=== PATIENT | male | born 1960 | race Caucasian/White ===

== ENCOUNTER → 2016-11-22 | Outpatient (CLI) | payer BC ==
[~2016-11-22] MED LIST: AMARYL2 MG PO; ASPIRIN325 MG PO; BACTRIM DS1 TAB PO; CLEOCIN150 MG PO; INVOKANA300 MG PO; JANUVIA 100 MG100 MG PO; LASIX20 MG PO; LIPITOR20 M1 PO; LOPRESSOR25 MG PO; METFORMIN HCL1000 MG PO; PERCOCET 5-3251 EACH PO; ZESTORETIC 20-1 EACH PO
== END | disposition disaster alternative care site (69) ==
LOC: GRAD 13:42
DX: E11.621 Type 2 diabetes mellitus with foot ulcer (principal); L97.519 Non-pressure chronic ulcer of other part of right foot with unspecified severity; E11.40 Type 2 diabetes mellitus with diabetic neuropathy, unspecified; M86.9 Osteomyelitis, unspecified

== ENCOUNTER 2016-11-24 11:19 | Observation (INO) | payer BC ==
--- NOTE | 2016-11-23 15:22 | NUR ---
Patient will have surgicial intervention by Dr. Dubois tomorrow regarding his right foot osteo. No futher appts. from outpatient [facility] at this time needed. SKY Marinelli
[~2016-11-24] VITALS: Ht 177.8 cm; Wt 135.0 kg
--- NOTE | ~2016-11-24 | DS ---
PATIENT'S NAME: ADRIENNE REAGAN [facility] AGE: 56 Y [address] ROOM: [place] [address] LOCATION: [facility] ADMIT DATE: 11/24/2016 Discharge Summary DISCHARGE DATE: 11/25/2016 FAMILY PHYSICIAN: Waldo Alegre MD ATTENDING PHYSICIAN: Demond Santos ADMITTING DIAGNOSES: 1. Right 5th metatarsal osteomyelitis. 2. Right diabetic pressure sore underneath the 5th metatarsal head. 3. Right gastrocnemius equinus. DISCHARGE DIAGNOSES: 1. Right 5th metatarsal osteomyelitis. 2. Right diabetic pressure sore underneath the 5th metatarsal head. 3. Right gastrocnemius equinus. SECONDARY DIAGNOSES: 1. Chronic obstructive pulmonary disease. 2. Diabetes mellitus type 2. 3. Hypertension. 4. Hyperlipidemia. 5. Obesity. 6. Osteomyelitis. 7. Peripheral neuropathy. 8. Sleep apnea. CONSULTATIONS: Hospitalist Service for medical management. PROCEDURES: Patient underwent the following procedure by Dr. Santos on 11/24/2016 and did tolerate the procedure well. 1. Gastrocnemius recession. 2. Excision of right 5th metatarsal bone. 3. Irrigation and debridement of skin, subcutaneous tissue, muscle, fascia, down to bone, wound measuring 4 x 4 cm. HISTORY OF PRESENT ILLNESS: This is a 56-year-old male patient seen by Dr. Santos earlier in the week for a right 5th metatarsal diabetic ulcer under the right foot and osteomyelitis. At that time it was felt that the patient needed surgery urgently, and the patient was scheduled for surgery on 11/24/2016. HOSPITAL COURSE: The patient was admitted overnight after his above-described procedure. He was kept under adequate pain control through the night. He did receive 3 doses of postoperative antibiotics. The patient's hospital course was uneventful and on 11/25/2016, the patient was determined to be stable for PAT[facility]'S [facility] AGE: 56 Y [address] ROOM: [place] [address] LOCATION: [facility] ADMIT DATE: 11/24/2016 Discharge Summary DISCHARGE DATE: 11/25/2016 FAMILY PHYSICIAN: Waldo Alegre MD ATTENDING PHYSICIAN: Demond Santos discharge home. DISCHARGE MEDICATIONS: New and changed medication: 1. Aspirin was changed to 325 mg p.o. b.i.d. for DVT prophylaxis. 2. He is also started on Percocet 5/325 1 tab every 4 hours as needed for pain. 3. Clindamycin 150 mg 3 tabs every 6 hours until gone. 4. Otherwise patient was discharged to take it his pre-admission medications as instructed by his internal medicine doctor. DISCHARGE INSTRUCTIONS: The patient is to be nonweightbearing of the right lower extremity. He is to wear postop shoe while transferring but may take the shoe off when he is resting with his leg elevated. The patient is to elevate his leg as much as possible. The patient is to follow a diabetic diet. FOLLOWUP: The patient is to follow up with Dr. Santos' office on 11/30/2016 at 1:10 p.m. for his initial postoperative visit. EMIR FUCHS PA-C FOR MD SHELDON CAMACHO/natali /[id number] d: 12/02/165 t: 12/03/16 1331, DISCHARGE SUMMARY
--- NOTE | ~2016-11-24 | OR ---
PATIENT'S NAME: MERARY [facility] AGE: 56 Y [address] ROOM: [place] [address] LOCATION: [facility] ADMIT DATE: 11/24/2016 OR/Procedure Report DISCHARGE DATE: FAMILY PHYSICIAN: Waldo Alegre MD ATTENDING PHYSICIAN: YULISA SANTO SURGEON: Yulisa Santo MD [employer] MANAGER: Audi Murphy PA-C DATE OF PROCEDURE: 11/24/2016 PREOPERATIVE DIAGNOSES: 1. Right gastrocnemius equinus/short Achilles tendon. 2. Right fifth metatarsal osteomyelitis. 3. Right full-thickness diabetic pressure sore underneath the fifth metatarsal head, wound measuring 4 x 4 cm. POSTOPERATIVE DIAGNOSES: 1. Right gastrocnemius equinus/short Achilles tendon. 2. Right fifth metatarsal osteomyelitis. 3. Right full-thickness diabetic pressure sore underneath the fifth metatarsal head, wound measuring 4 x 4 cm. PROCEDURES PERFORMED: 1. Right gastrocnemius recession procedure. 2. Excision of right fifth metatarsal bone. 3. Irrigation and debridement of skin, subcutaneous tissue, muscle, fascia, down to the bone, 4 x 4 cm. 4. Use of intraoperative fluoroscopy, less than 1 hour. ANESTHESIA: General endotracheal anesthesia. FLUIDS: See Anesthesia report. ESTIMATED BLOOD LOSS: Minimal. TOURNIQUET: Right proximal thigh 250 mmHg. SPECIMEN: Right fifth metatarsal and wound cultures. COMPLICATIONS: None. DISPOSITION: Stable in PACU. COUNTS: All counts were correct. INDICATIONS: Mr. Torres is a pleasant 56-year-old gentleman, who underwent PATIENT'S NAME: MERARY [facility] AGE: 56 Y [address] ROOM: [place] [address] LOCATION: [facility] ADMIT DATE: 11/24/2016 OR/Procedure Report DISCHARGE DATE: FAMILY PHYSICIAN: Waldo Alegre MD ATTENDING PHYSICIAN: YULISA SANTO the noted procedures above. The risks, benefits, and alternatives pursuing surgical intervention were discussed with the patient in detail. The patient elected to proceed with surgery as noted above. Anesthesia was consulted for their perioperative evaluation of the patient. I marked the right lower extremity indicating the correct surgical site. DESCRIPTION OF PROCEDURE: Operative report in detail. The patient was taken from the holding area to the operating room. A time-out was performed. General endotracheal anesthesia was administered. The right lower extremity was then prepped and draped in a sterile fashion. I turned my attention to the right foot. An Esmarch was used to exsanguinate the limb. The tourniquet was inflated to 250 mmHg. I began at the medial aspect of the leg. I performed a longitudinal incision at the medial aspect of the proximal leg through skin and subcutaneous tissue down through fascia to access the gastrocnemius aponeurosis. I performed my gastrocnemius recession procedure. I applied a hyper-dorsiflexion moment to the ankle and I increased the dorsiflexion by doing so. There was good diastasis of the gastrocnemius aponeurosis after the procedure was completed. The wound was then copiously irrigated and was closed in layers. I then turned my attention to the right foot. There was a 4 cm x 4 cm full- thickness diabetic pressure wound that was draining under the fifth metatarsal head. I began with an incision at the border of the glabrous and non-glabrous skin with the lateral border of the foot along with fifth metatarsal. Incision was carried through skin and subcutaneous tissue down to bone. I identified and isolated the fifth metatarsal. There was osteomyelitis present. Wound cultures were taken. Using an oscillating saw, I removed the fifth metatarsal. I then introduced intraoperative fluoroscopy to confirm the resection of the fifth metatarsal. I elected to keep the fifth toe in place as the incision did not require me to remove the fifth toe. The ulcer was then debrided through skin and subcutaneous tissue down to the bone. It was debrided to a stable base. The wound was then copiously irrigated with 3 L of normal sterile saline solution via pulsatile lavage. The wound was then closed using a 2-0 nylon suture in an interrupted horizontal mattress fashion. Sterile dressings were then placed in the form of Xeroform, followed by 4x4, Webril, and Mark bandage. The patient was placed in a postop shoe. The tourniquet was let down. The patient was then transferred from the operating room table onto the stretcher and extubated. He was brought to the recovery room in stable condition. There were no intraoperative complications noted. PATIENT'S NAME: ADRIENNE TORRES [facility] AGE: 56 Y [address] ROOM: [address] [address] LOCATION: [facility] ADMIT DATE: 11/24/2016 OR/Procedure Report DISCHARGE DATE: FAMILY PHYSICIAN: Waldo Alegre MD ATTENDING PHYSICIAN: YULISA SANTO Of note, my PA, Audi Murphy PA-C, played an integral role in the intraoperative care of this patient. This included preoperative positioning, intraoperative expert retraction, and closing and dressing functions. IMPRESSION: The patient is status post the noted procedures above. PLAN: The patient will be nonweightbearing on the right lower extremity in a postop shoe. He will be encouraged to rest, ice, and elevate the extremity going forward. Postoperative pain control will be in the form of Percocet and IV morphine as needed for pain. We will continue clindamycin antibiotics. The source of the osteomyelitis was effectively removed with the excision of the fifth metatarsal and the wound and a diabetic pressure sore has been debrided, therefore, a short course of postoperative antibiotic should be in order as opposed to long-term parenteral therapy for an ongoing osteomyelitis picture. I will continue to monitor the patient closely postoperatively. He will be admitted for observation. MD MIGDALIA CAMACHO/natali /[id number] d: 11/24/162125 t: 11/25/16 0831, OPERATIVE SUMMARY
[~2016-11-24 11:19] MED LIST changes: -BACTRIM DS1 TAB PO; -CLEOCIN150 MG PO; -PERCOCET 5-3251 EACH PO
[2016-11-24 12:45] LABS: ALBUMIN 3.3 gm/dL (3.5-5.0); ALK PHOS 58 IU/L (33-138); ALT 49 IU/L (12-78); ANION GAP 11.2 (10.0-19.0); AST 32 IU/L (10-40); BLOOD UREA NITROGEN 20 mg/dL (6-24); CALCIUM 9.3 mg/dL (8.5-10.5); CHLORIDE 100 mMol/L (96-110); CO2 26 mMol/L (22-32); CREATININE 0.9 mg/dL (0.6-1.3); ESTIMATED GFR (MDRD EQUATION) > 60; POTASSIUM 4.2 mMol/L (3.7-5.1); SODIUM 133 mMol/L (135-145); TOTAL BILIRUBIN 0.6 mg/dL (0.0-1.5); TOTAL PROTEIN 7.6 g/dL (6.0-8.4)
--- NOTE | 2016-11-24 19:39 | NUR ---
Significant Event: TO ROOM AT 1545 FROM PACU, A/O, HAS GAUZE EDWARD WRAP TO RIGHT LOWER LEG AND FOOT, WOODEN SHOE ON. NO DRAINAGE NOTED. ENC TO ELEVATE FOOT. NO SENSATION TO TOES DUE TO DIABETIS.. Follow up:
--- NOTE | 2016-11-25 04:39 | NUR ---
Significant Event: 1-2 assist with transfers. Incontinent at the beginning of the shift, but voids without difficulty now. Dressing is clean, dry and intact. Foot is numb, but patient states that this is not new. Last Percocet at 0243. On 3 L of oxygen due to destating. Follow up:
--- NOTE | 2016-11-25 09:45 | NUR ---
Introduced self/role to patient and his daughter. They live in [place]. is out getting a wheelchair, scooter and walker right now. Denied any other needs. Wrote my name on his marker board, will be leaving after lunch.
[2016-11-25] MEDS ORDERED: PERCOCET 5-3251 EACH PO (10:39)
[2016-11-25] MEDS ORDERED: CLEOCIN150 MG PO (10:39)
[2016-12-09] MEDS ORDERED: BACTRIM DS1 TAB PO (14:53)
== END 2016-11-25 16:00 | disposition disaster alternative care site (69) ==
LOC: G3N 11:19 → GSDC 11:19 → G3N 11:20 → GSDC 15:46 → G3N 15:47
PROVIDERS: ADMIT Orthopaedic Surgery Adult Reconstructive Orthopaedic Surgery
PROC: 0L8N0ZZ Division of Right Lower Leg Tendon, Open Approach (ICD-10-PCS; principal; 2016-11-24)
PROC: 0QBN0ZZ Excision of Right Metatarsal, Open Approach (ICD-10-PCS; 2016-11-24)
DX: M21.6X1 Other acquired deformities of right foot (principal); M86.8X7 Other osteomyelitis, ankle and foot; E11.69 Type 2 diabetes mellitus with other specified complication; L89.614 Pressure ulcer of right heel, stage 4; J44.9 Chronic obstructive pulmonary disease, unspecified; I10 Essential (primary) hypertension; E66.9 Obesity, unspecified; Z68.41 Body mass index [BMI] 40.0-44.9, adult; E78.2 Mixed hyperlipidemia; Z79.82 Long term (current) use of aspirin; Z79.899 Other long term (current) drug therapy; Z88.0 Allergy status to penicillin; Z87.891 Personal history of nicotine dependence
CPT/HCPCS: G0378; J3480; J7030